=== PATIENT | female | born 1935 | race Caucasian/White ===

== ENCOUNTER 2019-06-12 08:23 | Outpatient (CLI) | payer OTHER | END 2019-06-12 15:00 | disposition home or self-care (01) | LOC: LAB 08:23 | DX: J20.8 Acute bronchitis due to other specified organisms (principal); E55.9 Vitamin D deficiency, unspecified; N60.12 Diffuse cystic mastopathy of left breast; N60.11 Diffuse cystic mastopathy of right breast; R92.0 Mammographic microcalcification found on diagnostic imaging of breast; M89.8X8 Other specified disorders of bone, other site; N81.11 Cystocele, midline; N81.6 Rectocele; D25.1 Intramural leiomyoma of uterus; R97.1 Elevated cancer antigen 125 [CA 125]; N94.6 Dysmenorrhea, unspecified; M94.8X8 Other specified disorders of cartilage, other site; D39.8 Neoplasm of uncertain behavior of other specified female genital organs; Z12.11 Encounter for screening for malignant neoplasm of colon; R10.84 Generalized abdominal pain; E21.4 Other specified disorders of parathyroid gland; E21.5 Disorder of parathyroid gland, unspecified; E78.2 Mixed hyperlipidemia; E11.9 Type 2 diabetes mellitus without complications; R50.2 Drug induced fever; B33.8 Other specified viral diseases; B34.8 Other viral infections of unspecified site; I10 Essential (primary) hypertension; N30.00 Acute cystitis without hematuria; N92.6 Irregular menstruation, unspecified; N93.8 Other specified abnormal uterine and vaginal bleeding; D64.89 Other specified anemias; D50.8 Other iron deficiency anemias ==